=== PATIENT | male | born 1990 | race Caucasian/White ===

== ENCOUNTER 2019-01-06 21:26 | Emergency (ER) | payer SELFPAY ==
[2019-01-06] MEDS: PROPARACAINE HCL OPTH 15ML BTL OPTH ONE (22:10)
--- NOTE | 2019-01-06 22:18 | Emergency Department Record ---
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 Patient denies any FB or injury to the eye, was not grinding or welding this afternoon. Patient does not use contact lenses at home. Patient denies change in vision. Patient denies health problems at his baseline. chief complaint: Eye pain, Eye redness Onset/Timin -: Hour(s) Onset Description: Sudden Location: Right eye Place: Home If Injury: Occurred while hammering/grinding Eye Symptoms: Foreign body sensation, Itching, Redness Severity scale (1-10): 1 If Pain, Quality: Other Consistency: Constant Associated Symptoms: None Treatments Prior to Arrival: Irrigated eye, OTC eye drops - Related Data Visual acuity (L) = 20/: 20 Visual acuity (R) = 20/: 20 With correction: No Home Medications Medication Instructions Recorded Confirmed Last Taken Dextroamphetamine/Amphetamine 20 mg PO BID 01/06/19 01/06/19 01/06/19 [Adderall] Previous Rx's Medication Instructions Recorded Gentamicin Sulfate 2 drop EACH EYE QID #5 ml 01/06/19 Allergies Allergy/AdvReac Type Severity Reaction Status Date / Time No Known Drug Allergies Allergy Verified 01/06/19 21:56 Travel Screening - Travel/Exposure Within Last 30 Days Have you traveled within the last 30 days?: No - Travel/Exposure Within Last Year Have you traveled outside the [place] in the last year?: Yes Location Detail:: [facility] - Additonal Travel Details Have you been exposed to anyone with a communicable illness?: No - Travel Symptoms Symptom Screening: None Review of Systems Constitutional: Denies: Chills, Fever, Malaise, Night sweats Eyes: Reports: Eye pain. Denies: Eye discharge ENT: Denies: Congestion, Ear pain, Epistaxis Respiratory: Denies: Dyspnea Cardiovascular: Denies: Chest pain, Dyspnea on exertion Endocrine: Denies: Fatigue, Heat or cold intolerance Gastrointestinal: Denies: Abdominal pain, Nausea, Vomiting Genitourinary: Denies: Incontinence, Retention Musculoskeletal: Denies: Arthralgia, Back pain Skin: Denies: Bruising, Change in color Neurological: Denies: Abnormal gait, Confusion, Headache, Seizure Psychiatric: Denies: Anxiety Hematological/Lymphatic: Denies: Anemia, Blood Clots Past Medical History - SOCIAL HISTORY Smoking Status: Current every day smoker Alcohol Use: Occasional Drug Use: None - RESPIRATORY Hx Respiratory Disorders: No - CARDIOVASCULAR Hx Cardio Disorders: No - NEURO Hx Neuro Disorders: No - GI Hx GI Disorders: No - Hx Genitourinary Disorders: No - ENDOCRINE Hx Endocrine Disorders: No - MUSCULOSKELETAL Hx Musculoskeletal Disorders: No - PSYCH Hx Psych Problems: No - HEMATOLOGY/ONCOLOGY Hx Hematology/Oncology Disorders: No Family Medical History Any Significant Family History?: Yes Hx Cancer: Grandparents Hx Heart Disease: Grandparents Hx HTN: Grandparents Hx Stroke: Grandparents Physical Exam - General General Appearance: Alert, Oriented x3, Cooperative, Mild distress Limitations: No limitations - Head Head exam: Atraumatic, Normocephalic, Normal inspection Head exam detail: negative: Abrasion, Contusion, Veras's sign, General tenderness, Hematoma, Laceration - Eye Eye exam: Normal appearance, Conjunctival injection. negative: Periorbital swelling, Periorbital tenderness, Scleral icterus With correction: No Image of Eyes: 1 - Pupil 2 - Area of flourescein uptake on examination c/w abrasion, no FB identified. No stye visualized on examination. No FB on upper/lower lid eversion - ENT ENT exam: Normal exam Ear exam: negative: Auricular hematoma, Auricular trauma Nasal Exam: negative: Active bleeding, Discharge, Dried blood, Foreign body Mouth exam: negative: Drooling, Laceration, Muffled voice, Tongue elevation - Neck Neck exam: Normal inspection. negative: Meningismus, Tenderness - Respiratory Respiratory exam: Normal lung sounds bilaterally. negative: Rales, Respiratory distress, Rhonchi, Stridor - Cardiovascular Cardiovascular Exam: Regular rate, Normal rhythm, Normal heart sounds - GI/Abdominal GI/Abdominal exam: Soft. negative: Rebound, Rigid, Tenderness - Rectal Rectal exam: Deferred - exam: Deferred - Extremities Extremities exam: Normal inspection. negative: Calf tenderness, Pedal edema, Tenderness - Back Back exam: Denies: CVA tenderness (R), CVA tenderness (L) - Neurological Neurological exam: Alert, Normal gait, Oriented X3 - Psychiatric Psychiatric exam: Normal affect, Normal mood - Skin Skin exam: Normal color. negative: Abrasion Type of lesion: negative: abrasion Course Vital Signs 01/06/19 01/06/19 21:35 21:47 Temperature 98.2 F 98.2 F Pulse Rate [ 77 Pulse Ox Probe] Respiratory 24 24 Rate Blood Pressure 148/87 [Left Arm] Pulse Ox 98 98 - Reevaluation(s) Reevaluation #1: 01/06/19 22:23 History and examination appears c/w corneal abrasion [facility] reviewed: 20/20 bilaterally Will treat with gentamicin eye drops as directed and instructions to follow-up with Dr. Wang in the morning. Disposition Disposition: Discharge Clinical Impression: Corneal abrasion Qualifiers: Encounter type: initial encounter Laterality: right Qualified Code(s): S05.01XA - Injury of conjunctiva and corneal abrasion without foreign body, right eye, initial encounter Disposition: Home, Self-Care Condition: (2) Stable Instructions: Corneal Abrasion (ED) Additional Instructions: Return to ED if your symptoms worsen or if you have any concerns. gentamicin eye drops as directed. Call for follow-up appointment with Dr. Wang in the morning. Prescriptions: Gentamicin Sulfate 2 drop EACH EYE QID #5 ml Forms: Patient Portal Access Time of Disposition: 22:18 Quality - Quality Measures Quality Measures: N/A - Blood Pressure Screening Does Patient Have Any of the Following: No Blood Pressure Classification: Pre-Hypertensive BP Reading Systolic Measurement: 148 Diastolic Measurement: 87 Screening for High Blood Pressure: < Pre-Hypertensive BP, F/U Documented > [ [id number]] Pre-Hypertensive Follow-up Interventions: Referral to alternative/primary care provider.
== END 2019-01-06 22:34 | disposition home or self-care (01) ==
LOC: ER 21:26
DX: S05.01XA Injury of conjunctiva and corneal abrasion without foreign body, right eye, initial encounter (principal); W22.8XXA Striking against or struck by other objects, initial encounter; Y92.63 Factory as the place of occurrence of the external cause; Y99.0 Civilian activity done for income or pay; F17.210 Nicotine dependence, cigarettes, uncomplicated
CPT/HCPCS: 99282